=== PATIENT | female | born 1980 ===

== ENCOUNTER 2025-04-21 08:50 | Outpatient (CLI) | payer MEDICAID, OTHER | END 2025-04-21 08:51 | disposition home or self-care (01) | LOC: CSHMAMMO 08:50 | PROVIDERS: ATTEND Student in an Organized Health Care Education/Training Program | DX: R92.8 Other abnormal and inconclusive findings on diagnostic imaging of breast (principal); R92.333 Mammographic heterogeneous density, bilateral breasts | CPT/HCPCS: G0279 ==